=== PATIENT | female | born 1990 | race Caucasian/White ===

== ENCOUNTER 2022-02-20 08:57 | Outpatient (CLI) | payer OTHER, SELFPAY ==
--- NOTE | 2022-02-20 09:15 | CRLHL7_ITS ---
For Patients: As a result of the Century Cures Act, medical imaging exams and procedure reports are released immediately into your electronic medical record. You may view this report before your referring provider. If you have questions, please contact your health care provider. INDICATION: Evaluate anatomy. COMPARISON: none TECHNIQUE: Real time vitale scale imaging of the fetus was performed as well as color Doppler analysis of the umbilical vessels. FINDINGS: Sonographic imaging demonstrates a single living intrauterine gestation. Fetus demonstrates a regular cardiac rate of 157 beats per minute. Fetus has a variable position. The placenta lies right posterior without evidence of placenta previa. The edge of the placenta is 9 cm from the internal cervical os. Amniotic fluid volume appears normal. Single deepest vertical pocket: 4.5 cm. The cervix is closed and measures 4.1 cm in length. The composite ultrasound gestational age is calculated at 22 weeks 2 days with an estimated sonographic due date of 06/24/2022. The estimated weight is 514 grams. The following biometric measurements were obtained: Biparietal diameter: 5.3 cm/22 weeks 0 days Head circumference: 19.7 cm/21 weeks 6 days Abdominal circumference: 18.1 cm/23 weeks 0 days Femur length: 3.8 cm/22 weeks 2 days The HC/AC ratio measures: 1.09 range (1.05-1.22) On anatomic survey, there is a normal appearance of the cerebral ventricles, cavum septi pellucidi, cisterna magna and cerebellum. The nose, lips, and facial profile appear normal. The cervical, thoracic and lumbar spine are well visualized and appear normal. There is a normal four-chamber heart view and the left and right ventricular outflow tracts appear normal. The diaphragm and stomach appear normal. The kidneys and bladder also appear normal. There is a normal three-vessel cord and cord insertion site. The four extremities appear normal. IMPRESSION: Sonographic gestational age 22 weeks 2 days and sonographic due date of 06/24/2022. No intrinsic abnormalities noted on anatomic survey. Dictated by Austin Banuelos MD @ 02/20/2022 10:46:45 AM (Electronically Signed)
== END 2022-02-20 08:58 | disposition home or self-care (01) ==
LOC: US 08:57
PROVIDERS: PCP Family Medicine; Visit Provider Advanced Practice Midwife
DX: Z34.92 Encounter for supervision of normal pregnancy, unspecified, second trimester (principal); Z3A.22 22 weeks gestation of pregnancy
CPT/HCPCS: 76805; 76817

== ENCOUNTER 2022-02-20 10:41 | Outpatient (CLI) | payer OTHER, SELFPAY ==
[2022-02-20 12:21] LABS: Amphetamine Screen Urine Negative (Negative); Barbiturate Screen Urine Negative (Negative); Benzodiazepines Screen Urine Negative (Negative); Cannabinoid Screen Urine Negative (Negative); Cocaine Screen Urine Negative (Negative); Methadone Screen Urine Negative (Negative); Methamphetamines Screen Urine Negative (Negative); Opiate Screen Urine Negative (Negative); Oxycodone Screen Urine Negative (Negative); Phencyclidine Screen Urine Negative (Negative); Tricyclic Antidepressant Urine Negative (Negative)
[2022-02-20 15:33] LABS: Hepatitis B Surface Antigen* Negative (Negative)
[2022-02-20 15:42] LABS: HIV 1/2/P24 Combo Screen* Negative (Negative)
[2022-02-20 15:51] LABS: Hepatitis C Virus Antibody* Negative (Negative)
[2022-02-20 16:45] LABS: Chlamydia DNA Amplified* NOT DETECTED (No Detected); GC DNA Amplified* NOT DETECTED (No Detected)
[2022-02-21 23:33] LABS: Rapid Plasma Reagin (RPR) Non Reactive (Non Reactive)
[2022-02-22 01:29] LABS: Rubella Antibody IgG 19.7 IU/mL
== END 2022-02-20 10:42 | disposition home or self-care (01) ==
PROVIDERS: PCP Family Medicine; Visit Provider Advanced Practice Midwife
DX: Z34.82 Encounter for supervision of other normal pregnancy, second trimester (principal); Z3A.22 22 weeks gestation of pregnancy
CPT/HCPCS: 80306; 86592; 86703; 86762; 86787; 86803; 86850; 86900; 86901; 87086; 87340; 87491; 87591

== ENCOUNTER 2022-04-02 12:01 | Outpatient (CLI) | payer OTHER, SELFPAY ==
[2022-04-03 13:29] LABS: Rapid Plasma Reagin (RPR) Non Reactive (Non Reactive)
== END 2022-04-02 12:02 | disposition home or self-care (01) ==
PROVIDERS: PCP Family Medicine; Visit Provider Physician Assistant
DX: Z34.90 Encounter for supervision of normal pregnancy, unspecified, unspecified trimester (principal)
CPT/HCPCS: 86592

== ENCOUNTER 2022-05-15 08:10 | Outpatient (CLI) | payer OTHER, SELFPAY ==
[2022-05-15 08:17] LABS: Glucose Fasting Check 70 mg/dl (60-115)
[2022-05-15 12:14] LABS: Glucose 1 Hour Gest 182 mg/dl (70-180)
[2022-05-15 12:15] LABS: Glucose GTT-Gestational 3 Hr 142 mg/dl (70-140)
== END 2022-05-15 08:11 | disposition home or self-care (01) ==
LOC: NFLDREF 08:10
PROVIDERS: PCP Family Medicine; Visit Provider Advanced Practice Midwife
DX: O99.810 Abnormal glucose complicating pregnancy (principal); Z3A.34 34 weeks gestation of pregnancy
CPT/HCPCS: 82951; 82952

== ENCOUNTER 2022-06-05 10:42 | Outpatient (CLI) | payer OTHER, SELFPAY ==
[2022-06-06 12:27] LABS: Strep B DNA Probe NEGATIVE (Negative)
== END 2022-06-05 10:43 | disposition home or self-care (01) ==
LOC: NFLDREF 10:42
PROVIDERS: PCP Family Medicine; Visit Provider Advanced Practice Midwife
DX: Z34.83 Encounter for supervision of other normal pregnancy, third trimester (principal); Z3A.37 37 weeks gestation of pregnancy
CPT/HCPCS: 87081; 87653

== ENCOUNTER 2022-06-28 08:01 | Inpatient (IN) | payer OTHER, SELFPAY ==
[2022-06-28] VITALS (56 sets, daily range): BP systolic 115–153; BP diastolic 57–86; PULSE 51–88; RESP 16–18; TEMP 36.3–36.6; O2SAT 90–100; BMI 27.4
--- NOTE | 2022-06-28 09:21 | W.PM.LDBA ---
Subjective History of Present Illness Time Seen by Provider: 09:21 Date Seen: 06/28/22 Narrative: Patient is being admitted to Labor and Delivery for IOL r/t uncontrolled gestational diabetes. She is a 32 year old at 40 4/7 weeks gestation. Her full history and physical was dictated by Juliette Starks CNM on 06/05/22. Please see this for details. [] OB - H&P: Exam Physical Exam: Vital signs: Temp Pulse BP Pulse Ox 97.6 F 67 121/75 100 06/28/22 08:22 06/28/22 08:23 06/28/22 08:23 06/28/22 08:21 Constitutional: Constitutional: no acute distress Routine HEENT Exam: Head: Present normocephalic Eye: Present normal appearance Routine Neck Exam: Neck: Present full ROM Routine Respiratory Exam: Respiratory: Present CTA bilaterally Routine Cardiovascular Exam: Cardiovascular: RRR Detailed Abdominal Exam: Comments: Gravid Routine Exam: External: Present normal external exam Perineum Description: Normal Detailed Labor and Delivery Exam: Patient Gravid: yes Dilation (cm): 0 Effacement (%): 0 Cervix position: posterior Consistency: medium Tachysystole: No Fetus (Single): Station: -3 Heart Rate Baseline: 135 Monitor Accelerations: Present Monitor Decelerations: None 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 32 at 40 4/7 weeks gestation? complicated by:?GDM Labor type: Induced, IOL ongoing ? Category 1 FHR pattern.?? GBS Negative? PLAN:? 1. Routine intrapartum cares as ordered. Continue with IOL per pitocin protocol 2. Monitoring per policy, Intermittent? 3. Planning epidural. Candidate for analgesia of choice.?? 4. Patient encouraged to reposition and ambulate to promote physiologic labor and .? 5. Anticipate progress to active labor and ? ? Delivery/Labor/Induction Plan Plan: induction Induction method: per pitocin protocol
[2022-06-28] MEDS: miSOPROStoL 25 MCG/0.25 TABLET VAGINAL ×3 (10:05→20:31)
[2022-06-28 10:06] LABS: Basophils Absolute Auto 0.02 K/uL (0.00-0.30); Basophils Percent Auto 0.3 % (0.0-3.0); Eosinophils Absolute Auto 0.03 K/uL (0.00-0.50); Eosinophils Percent Auto 0.5 % (0.0-7.0); Hematocrit 33.3 % (33.0-51.0); Hemoglobin* 10.9 gm/dL (12.0-16.0); Immature Granulocytes Abs Auto 0.01 K/uL (0.00-0.30); Immature Granulocytes Pct Auto 0.2 %; Lymphocytes Absolute Auto 1.22 K/uL (0.90-2.90); Lymphocytes Percent Auto 20.3 % (20-44); Mean Corpuscular HGB Conc 33 gm/dL (32-36); Mean Corpuscular Hemoglobin 28 pg (26-34); Mean Corpuscular Volume 84 fL (80-100); Monocytes Percent Auto 3.7 % (0.0-11.0); Platelet Count* 136 K/uL (140-440); RDW Coefficient of Variation % 12.6 % (11.5-15.5); Red Blood Count 3.97 m/uL (4.00-5.20); White Blood Count* 6.02 K/uL (4.50-11.00)
[2022-06-28 10:09] LABS: Slide Review Reflex No
[2022-06-28 10:22] LABS: Amphetamine Screen Urine Negative (Negative); Barbiturate Screen Urine Negative (Negative); Benzodiazepines Screen Urine Negative (Negative); Cannabinoid Screen Urine Negative (Negative); Cocaine Screen Urine Negative (Negative); Methadone Screen Urine Negative (Negative); Methamphetamines Screen Urine Negative (Negative); Opiate Screen Urine Negative (Negative); Oxycodone Screen Urine Negative (Negative); Phencyclidine Screen Urine Negative (Negative); Tricyclic Antidepressant Urine Negative (Negative)
[2022-06-28 10:37] LABS: SARS PCR* Negative SARS-CoV-2 (Negative)
[2022-06-28] MEDS: LACTATED RINGERS 1000 ML 1,000 ML 1025 ML IV (18:41)
[2022-06-28] MEDS: ROPIVACAINE 0.2% 100 ml 100 ML 12 MG EPIDURAL (19:20)
[2022-06-28] MEDS: LIDOCAINE 2% (PF) 5 ML VIAL EPIDURAL (19:20)
[2022-06-28] MEDS: fentaNYL 250 MCG/5 ML inj 100 MCG EPIDURAL (19:25)
--- NOTE | 2022-06-28 19:38 | P.ANBPRC_ITS ---
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 Smoking Status: Never smoker Little interest or pleasure in doing things: several days Feeling down, depressed, or hopeless: several days Meds Home Medications and Allergies Home Medications Medication Instructions Recorded Confirmed Type prenat.vits,robert,[id number]-ytdsf 1 tab PO QDAY 02/20/22 06/28/22 History hydroxyzine pamoate 25 mg capsule 25 mg PO ONCE PRN 06/19/22 06/28/22 History (Vistaril) Allergies Allergy/AdvReac Type Severity Reaction Status Date / Time No Known Allergies Allergy Verified 06/19/22 09:05 Results Labs Labs: Laboratory Results - last 24 hr 06/28/22 06/28/22 06/28/22 09:53 09:53 09:54 WBC 6.02 RBC 3.97 L Hgb 10.9 L Hct 33.3 MCV 84 MCH 28 MCHC 33 RDW Coeff of Carmen 12.6 Plt Count 136 L Neut % (Auto) 75.0 H Lymph % (Auto) 20.3 [place] % (Auto) 3.7 Eos % (Auto) 0.5 Baso % (Auto) 0.3 Neut # (Auto) 4.50 Lymph # (Auto) 1.22 [place] # (Auto) 0.20 Eos # (Auto) 0.03 Baso # (Auto) 0.02 Abs Immat Gran (auto) 0.01 Imm/Tot Granulo (auto) 0.2 Urine Opiates Screen Negative Ur Oxycodone Screen Negative Urine Methadone Screen Negative Ur Propoxyphene Screen Negative Ur Barbiturates Screen Negative U Tricyclic Antidepress Negative Ur Phencyclidine Scrn Negative Ur Amphetamines Screen Negative U Methamphetamines Scrn Negative U Benzodiazepines Scrn Negative Urine Cocaine Screen Negative U Marijuana (THC) Screen Negative SARS-CoV-2 (PCR) Negative SARS-CoV-2 Blood Type Antibody Screen 06/28/22 09:54 WBC RBC Hgb Hct MCV MCH MCHC RDW Coeff of Carmen Plt Count Neut % (Auto) Lymph % (Auto) [place] % (Auto) Eos % (Auto) Baso % (Auto) Neut # (Auto) Lymph # (Auto) [place] # (Auto) Eos # (Auto) Baso # (Auto) Abs Immat Gran (auto) Imm/Tot Granulo (auto) Urine Opiates Screen Ur Oxycodone Screen Urine Methadone Screen Ur Propoxyphene Screen Ur Barbiturates Screen U Tricyclic Antidepress Ur Phencyclidine Scrn Ur Amphetamines Screen U Methamphetamines Scrn U Benzodiazepines Scrn Urine Cocaine Screen U Marijuana (THC) Screen SARS-CoV-2 (PCR) Blood Type A Positive Antibody Screen NEGATIVE Vital Signs Vital Signs: Last Vital Signs Temp 97.9 F 06/28/22 17:55 Pulse 75 06/28/22 19:37 BP 126/79 06/28/22 19:37 Pulse Ox 100 06/28/22 19:36 Weight: 77.111 kg Height: 167.64 cm Anesthesia Procedures Epidural Insertion Patient Location: OB Start Time: 18:38 Stop Time: 19:38 Start Date: 06/28/22 Stop Date: 06/28/22 Reason for Block: primary anesthetic Patient Position: sitting Performed By: Lopez Joseph Preanesthetic Checklist: IV checked, risks and benefits discussed, surgical consent, monitors and equipment checked, pre-op evaluation, timeout performed and anesthesia consent Prep: chlorhexidine gluconate Monitoring: blood pressure monitoring, conveyor monitor, continuous pulse oximetry and heart rate Approach: midline Vertebral Space: lumbar (1-5) Needle Type: Tuohy needle Injection Technique: continuous catheter Needle gauge: 17 Needle Length (cm): 10 cm Needle Insertion Depth (cm): 6 Catheter Gauge: 19 Catheter Type: multi-orifice Catheter at skin depth (cm): 12 Test Dose Result: negative and lidocaine 1.5% with epinephrine 1 to 200,000 Events: other
--- NOTE | 2022-06-28 21:09 | PM.OBPNL ---
Subjective Time Seen by Provider: 20:30 Date Seen: 06/28/22 Narrative: Julieth is resting comfortably in bed with an epidural. She is currently being supported by Robby. Understands the current plan of care. ?Denies concerns at this time. Questions answered to her satisfaction. ?She would like to continue with epidural for comfort and pain management.? Objective Exam: VSS, afebrileGeneral Appearance:?Calm, cooperative. No acute distress. ? Psychiatric Exam: Alert and oriented, appropriate affect Abdomen: Gravid Ctx: ?Q 1-4 min apart. ?Moderate ? FHTs: ?Baseline: 140 ? ?Variability: Moderate ? Accels: absent ? ?Decels: ?absent SVE: 4, 60%, -4 Membranes: Intact Vital Signs: Last Vital Signs Temp 97.8 F 06/28/22 19:31 Pulse 57 L 06/28/22 21:01 Resp 18 06/28/22 19:31 BP 131/78 06/28/22 21:01 Pulse Ox 98 06/28/22 20:57 Assessment Heart Rate Baseline: 135 Plan Plan: Assessment:? 32yo at 40w 4d gestation?? Patient is coping well with challenges of labor.?? Labor type: Induced, Early labor? Category 1 FHR pattern.?? complicated by: GDM Plan:?? Continue with routine intrapartum cares as ordered.?? Continue IOL with cytotec protocol Patient encouraged to change positions in bed to promote physiologic labor and .?? Epidural for comfort . Anticipate progress to active labor and . ?
--- NOTE | 2022-06-28 22:04 | PM.OBPNL ---
Subjective Time Seen by Provider: 22:00 Date Seen: 06/28/22 Narrative: Pt requesting AROM for labor progression. Comfortable with epidural. Objective Vital Signs: Last Vital Signs Temp 97.8 F 06/28/22 19:31 Pulse 61 06/28/22 21:46 Resp 18 06/28/22 19:31 BP 134/79 06/28/22 21:46 Pulse Ox 98 06/28/22 20:57 Assessment Amniotic Membrane Status: AROM (Clear fluid) Plan Plan: Provider called for delivery.
[2022-06-28] MEDS: OXYTOCIN 30 unit/500 ML in NS 30 UNIT/500 ML BAG 300 UNIT IVPB (22:29)
--- NOTE | 2022-06-28 23:12 | P.OBPRC_ITS ---
Documented by User: Stacey Coates CNM 06/28/22 23:45 Procedure Delivery date: 06/28/22 Procedure Done: Global Procedure Details: Julieth is a 32 year-old G6 now?P5 admitted on 06/28/22 at 40 Weeks, 4 Days gestation for IOL r/t GDM1. Cervical exam on admission was 0.5 cm/20 % effaced/- 3 station with membranes intact in vertex presentation.? AROM?occurred at 2152 with clear fluid. Labor Analgesia:? Epidural Pitocin:?No, PP only for AMTSL Labor onset:? 1814 Complete: 2204 Pushing:? 2211 heart tones during second stage: baseline 125, moderate variability, accels present, decels into 90's during pushing with good return to baseline Patient was admitted for IOL r/t GDM and progressed with augmentation. AROM noted at 2152 with clear fluid. Patient was complete at 2204 and pushing at 221. of a viable male at 2227 in bed, semi-reclined. Vertex delivered OA. No nuchal cord or shoulder. Body delivered easily and without incident. passed to mother's abdomen with a vigorous cry. Cord was clamped and cut after pulsations stopped. APGARS were 9 at one minute and 9 at five minutes. Placenta delivered spontaneously at 2248. Placenta delivered intact, but small in relation to baby's size, spongy consistency, with a 3 vessel cord. Fundus firm. No lacerations. EBL 50 cc. Mother and baby stable; mother plans to breastfeed. weight 9lb 11oz.? Placenta delivered spontaneously and complete at 2248 with a 3 vessel cord. Mother and infant were stable after?delivery. Lacerations:? None Blood loss: 50 mL. Blood loss measurement type: EBL Sponge and needles counts are correct. Events: GDMA1 Intrapartal Events: Labor Induction (cytotec x3) Induction method: per misoprostol protocol Delivery augmentation: rupture of membranes (clear fluid) Delivery monitor: external FHT and external uterine Route of delivery: Laceration description: None Estimated blood loss (mL): 50 Anesthesia type: Epidural Disposition: floor [place] Infant Gender: Male presentation: vertex (OA) Placental Delivery Description: Spontaneous Cord Description: 3 Vessels OB Vag Delivery Procedures Additional Procedures ECV: No Cook Catheter Insertion: No NST: No D&C: No Laceration Repair: No Tubal Ligation : No Other: No Documented by User: Michelle Lee CNM 06/29/22 10:28 Procedure Procedure Details: Julieth is a 32 year-old G6 now?P5 admitted on 06/28/22 at 40 Weeks, 4 Days gestation for IOL r/t GDM1. Cervical exam on admission was 0.5 cm/20 % effaced/- 3 station with membranes intact in vertex presentation.? AROM?occurred at 2153 with clear fluid. Labor Analgesia:? Epidural Pitocin:?No, PP only for AMTSL Labor onset:? 1814 Complete: 2204 Pushing:? 2211 heart tones during second stage: baseline 125, moderate variability, accels present, decels into 90's during pushing with good return to baseline Patient was admitted for IOL r/t GDM and progressed with augmentation. AROM noted at 2153 with clear fluid. Patient was complete at 2205 and pushing at 2212. of a viable male at 2227 in bed, semi-reclined. Vertex delivered OA. No nuchal cord or shoulder. Body delivered easily and without incident. Infant passed to mother's abdomen with a vigorous cry. Cord was clamped and cut after pulsations stopped. APGARS were 9 at one minute and 9 at five minutes. Placenta delivered spontaneously at 2248. Placenta delivered intact, but small in relation to baby's size, spongy consistency, with a 3 vessel cord. Fundus firm. No lacerations. EBL 50 cc. Mother and baby stable; mother plans to breastfeed. Infant weight 9lb 11oz.? Placenta delivered spontaneously and complete at 2248 with a 3 vessel cord. Mother and were stable after?delivery. Lacerations:? None Blood loss: 50 mL. Blood loss measurement type: EBL Sponge and needles counts are correct. JERMAINE Cox present for supervision of delivery.
[2022-06-29] VITALS (11 sets, daily range): BP systolic 111–132; BP diastolic 66–82; PULSE 61–72; RESP 16–18; TEMP 36.3–36.6; O2SAT 96–97
[2022-06-29] MEDS: IBUPROFEN 600 MG TABLET PO ×3 (02:53→16:05)
[2022-06-29] MEDS: ACETAMINOPHEN 500 MG TABLET 1000 MG PO ×2 (06:14→12:16)
--- NOTE | 2022-06-29 08:13 | PM.OBDSVD1 ---
DS: Providers Provider Date Seen: 06/29/22 Date of admission: 06/28/22 08:01 Primary care physician: Lupe Xiong MD Admitting Clinician: Stacey Coates CNM Attending Physician on discharge: Michelle Lee CNM Date of Discharge: 06/29/22 DS: Diagnosis Discharge Diagnosis (1) care and examination immediately after delivery: Status: Acute (2) Influenza A: Status: Acute (3) Gestational diabetes mellitus (GDM) affecting : Status: Acute (4) Migraine with aura: Status: Acute (5) Vaginal delivery: Status: Acute (6) Lactating mother: Status: Acute Exam Narrative: Exam Narrative: GENERAL APPEARANCE:? normal affect, alert, no distress? MOOD:? appropriate? CHEST:? clear to auscultation? HEART:? regular rate and rhythm? ABDOMEN:? soft, non-tender the uterine fundus is At Umbilicus, Midline and is appropriate for the stage of recovery.? PERINEUM:? mild edema of the perineum? EXTREMITIES:? normal and no edema? Const: Vital Signs, click to edit/add: Vital Signs - 24 hr 06/28/22 08:21 06/28/22 08:22 06/28/22 08:23 Temperature 97.6 F Pulse Rate 67 Pulse Rate [Pulse Oximeter] Respiratory Rate Blood Pressure 121/75 Blood Pressure [Le ft Arm] Pulse Oximetry 100 Oxygen Delivery Me od 06/28/22 11:58 06/28/22 17:55 06/28/22 19:16 Temperature Pulse Rate 64 72 Pulse Rate [Pulse Oximeter] Respiratory Rate Blood Pressure 115/60 119/65 Blood Pressure [Le ft Arm] Pulse Oximetry 100 Oxygen Delivery Me thod 06/28/22 19:21 06/28/22 19:26 06/28/22 19:29 Temperature Pulse Rate 70 66 Pulse Rate [Pulse Oximeter] Respiratory Rate Blood Pressure 136/82 126/76 Blood Pressure [Le ft Arm] Pulse Oximetry 99 100 Oxygen Delivery Me thod 06/28/22 19:31 06/28/22 19:33 06/28/22 19:35 Temperature Pulse Rate 70 67 71 Pulse Rate [Pulse Oximeter] Respiratory Rate Blood Pressure 131/81 133/86 127/82 Blood Pressure [Le ft Arm] Pulse Oximetry 99 Oxygen Delivery Me od 06/28/22 19:36 11/25/22 19:37 06/28/22 19:39 Temperature Pulse Rate 75 73 Pulse Rate [Pulse Oximeter] Respiratory Rate Blood Pressure 126/79 130/78 Blood Pressure [Le ft Arm] Pulse Oximetry 100 Oxygen Delivery Me thod 06/28/22 19:41 06/28/22 19:46 06/28/22 19:48 Temperature Pulse Rate 61 68 Pulse Rate [Pulse Oximeter] Respiratory Rate Blood Pressure 128/77 126/78 Blood Pressure [Le ft Arm] Pulse Oximetry 99 99 Oxygen Delivery Me thod 06/28/22 19:51 06/28/22 19:56 06/28/22 19:57 Temperature Pulse Rate 54 L 59 L Pulse Rate [Pulse Oximeter] Respiratory Rate Blood Pressure 130/82 128/65 Blood Pressure [Le ft Arm] Pulse Oximetry 98 98 Oxygen Delivery Me thod 06/28/22 20:00 06/28/22 20:01 06/28/22 20:06 Temperature Pulse Rate 62 Pulse Rate [Pulse Oximeter] Respiratory Rate Blood Pressure 118/65 Blood Pressure [Le ft Arm] Pulse Oximetry 98 98 Oxygen Delivery Me thod 06/28/22 19:31 06/28/22 20:11 06/28/22 20:16 Temperature 97.8 F Pulse Rate Pulse Rate [Pulse Oximeter] Respiratory Rate 18 Blood Pressure Blood Pressure [Le ft Arm] Pulse Oximetry 98 98 Oxygen Delivery Me thod 06/28/22 20:17 06/28/22 20:21 06/28/22 20:27 Temperature Pulse Rate 56 L Pulse Rate [Pulse Oximeter] Respiratory Rate Blood Pressure 117/68 Blood Pressure [Le ft Arm] Pulse Oximetry 98 92 Oxygen Delivery Me thod 06/28/22 20:27 06/28/22 20:31 06/28/22 20:32 Temperature Pulse Rate 58 L Pulse Rate [Pulse Oximeter] Respiratory Rate Blood Pressure 115/67 Blood Pressure [Le ft Arm] Pulse Oximetry 91 98 Oxygen Delivery Me thod 06/28/22 20:37 06/28/22 20:42 06/28/22 20:46 Temperature Pulse Rate 53 L Pulse Rate [Pulse Oximeter] Respiratory Rate Blood Pressure 124/70 Blood Pressure [Le ft Arm] Pulse Oximetry 98 98 Oxygen Delivery Me thod 06/28/22 20:47 06/28/22 20:52 06/28/22 20:57 Temperature Pulse Rate Pulse Rate [Pulse Oximeter] Respiratory Rate Blood Pressure Blood Pressure [Le ft Arm] Pulse Oximetry 97 98 98 Oxygen Delivery Me thod 06/28/22 21:01 06/28/22 21:19 06/28/22 21:31 Temperature Pulse Rate 57 L 77 59 L Pulse Rate [Pulse Oximeter] Respiratory Rate Blood Pressure 131/78 124/66 138/80 Blood Pressure [Le ft Arm] Pulse Oximetry Oxygen Delivery Me thod 06/28/22 21:46 06/28/22 22:12 06/28/22 22:17 Temperature Pulse Rate 61 67 Pulse Rate [Pulse Oximeter] Respiratory Rate Blood Pressure 134/79 153/84 H Blood Pressure [Le ft Arm] Pulse Oximetry 100 98 Oxygen Delivery Va thod 06/28/22 22:22 06/28/22 22:25 06/28/22 22:27 Temperature Pulse Rate Pulse Rate [Pulse Oximeter] Respiratory Rate Blood Pressure Blood Pressure [Le ft Arm] Pulse Oximetry 99 90 100 Oxygen Delivery Va thod 06/28/22 22:31 06/28/22 22:46 06/28/22 23:01 Temperature Pulse Rate 70 68 64 Pulse Rate [Pulse Oximeter] Respiratory Rate Blood Pressure 138/69 118/57 L 127/77 Blood Pressure [Le ft Arm] Pulse Oximetry Oxygen Delivery Va thod 06/28/22 23:16 06/28/22 23:31 06/28/22 23:46 Temperature Pulse Rate 60 63 63 Pulse Rate [Pulse Oximeter] Respiratory Rate Blood Pressure 126/73 117/69 115/70 Blood Pressure [Le ft Arm] Pulse Oximetry Oxygen Delivery Va thod 06/29/22 00:01 06/29/22 00:16 06/29/22 00:31 Temperature Pulse Rate 61 66 Pulse Rate [Pulse Oximeter] Respiratory Rate Blood Pressure 112/67 117/66 115/71 Blood Pressure [Le ft Arm] Pulse Oximetry Oxygen Delivery Va thod 06/29/22 00:46 06/28/22 17:55 06/28/22 12:00 Temperature 97.9 F 97.8 F Pulse Rate 72 Pulse Rate [Pulse Oximeter] Respiratory Rate Blood Pressure 118/73 Blood Pressure [Le ft Arm] Pulse Oximetry Oxygen Delivery Me thod 06/28/22 22:00 06/28/22 23:05 11/25/22 23:20 Temperature 97.4 F L Pulse Rate Pulse Rate [Pulse Oximeter] 64 60 Respiratory Rate 16 Blood Pressure Blood Pressure [Le ft Arm] 127/77 Pulse Oximetry Oxygen Delivery Me thod 06/29/22 04:06 Temperature 97.7 F Pulse Rate Pulse Rate [Pulse Oximeter] 70 Respiratory Rate 16 Blood Pressure Blood Pressure [Le ft Arm] 111/70 Pulse Oximetry 97 Oxygen Delivery Me thod Room Air OB - DS: Summary Hospital Course Hospital Course: The patient is a 32 year old G 6 P 5015 at 40 4/7 weeks gestation that was admitted to the Center on 06/28/22 for IOL for gestational diabetes, uncontrolled. She had an uncomplicated vaginal delivery. She delivered a viable male infant. She is breast feeding. the patient has done well. The pain is well controlled with current medications.? She has no new complaints.? Urinary output is adequate and she is voiding without difficulty.? Has a good appetite, is tolerating a general diet, is passing flatus, and has not yet had a bowel movement.? Has scant amount of rubra lochia.? She is ambulating well. She is and reports it is going well.? Peripartum Data delivery method: Vaginal Laceration description: None complications: none [place] Gender: Male Discharge Plan: Home Status at Discharge Functional status at discharge: independent ambulation Overall status at discharge: patient is progressing back to baseline Time Spent with Patient Time attestation: Total time spent providing and/or coordinating discharge services: Time spent: Less than 30 minutes Discharge Plan Discharge Disposition: Home, Self-Care Date of Admission: 06/28/22 08:01 Attending Provider on Discharge: Michelle Lee Primary Care Provider: Lupe Xiong Condition: Stable Anticipated Discharge Date/Time: 06/29/22 22:30 Discharge Medications: New acetaminophen 500 mg Tablet 1,000 mg PO Q6H PRNQty: 0 0RF docusate sodium 100 mg Capsule 100 mg PO DAILY Qty: 90 0RF ibuprofen 600 mg Tablet 600 mg PO Q6H PRNQty: 60 0RF Continued prenat.vits,robert,yum-vvvg-sfsmc Tablet 1 tab PO QDAY Discontinued hydroxyzine pamoate [Vistaril] 25 mg capsule 25 mg PO ONCE PRN Hold Instructions: Order Change oseltamivir [Tamiflu] 75 mg capsule 75 mg PO BID 5 Days Qty: 10 0RF (DME) Test Strips Misc See Rx Instructions .MEDSUPPLY Qty: 100 3RF Rx Instructions: Test blood sugar 4 times daily. (DME) lancets Misc See Rx Instructions .MEDSUPPLY Qty: 100 3RF Rx Instructions: Test blood sugar 4 times daily. (DME) Blood Glucose Meter Misc See Rx Instructions .MEDSUPPLY Qty: 1 0RF Rx Instructions: As directed Discharge Orders: Discharge Order (Routine); Ordered 06/29/22 Ordered By: Michelle Lee Patient Education: OB Vaginal/Breast Feeding Additional Instructions: Discharge instructions were reviewed with the patient including signs and symptoms of infection and home going medications Nothing vaginally for 6 weeks: no tampons or intercourse Do not drive while taking narcotic pain medication(s) Off Work or School for 6 weeks 2-week visit: discuss feeding concerns, review control options and screen for anxiety/depression. 6-week visit for an annual exam and lab for 2 hour glucose test for gestational diabetes follow-up. consultation services are available to all mothers and babies for the first year after delivery.? To make an appointment, please call [phone]. Activity Level: No Restrictions Discharge Diet: Regular Follow Up Appointments: [facility] [Provider Group] (2 week and 6 week with 2 hour glucose test) Forms: [employer] Info Instructions
[2022-06-29] MEDS: DOCUSATE SODIUM 100 MG CAPSULE PO (08:42)
== END 2022-06-30 | disposition home or self-care (01) | DRG 806 ==
PROVIDERS: Admitting Provider Advanced Practice Midwife; PCP Family Medicine; Visit Provider Advanced Practice Midwife
DX: O24.429 Gestational diabetes mellitus in childbirth, unspecified control (principal); O98.52 Other viral diseases complicating childbirth; Z37.0 Single live birth; J10.1 Influenza due to other identified influenza virus with other respiratory manifestations; G43.109 Migraine with aura, not intractable, without status migrainosus; Z3A.40 40 weeks gestation of pregnancy
CPT/HCPCS: 01967; 36415; 59200; 80306; 82962; 85018; 85025; 86850; 86900; 86901; 87635; 88307; A9270; J2795; J3010; J7120

== ENCOUNTER 2025-01-05 10:01 | Outpatient (CLI) | payer BC, SELFPAY ==
--- NOTE | 2025-01-05 10:15 | CRLHL7_ITS ---
For Patients: As a result of the Century Cures Act, medical imaging exams and procedure reports are released immediately into your electronic medical record. You may view this report before your referring provider. If you have questions, please contact your health care provider. Technique: Double-contrast upper GI performed after the uneventful administration of thick and thin barium. Fluoroscopy time 1 minutes 31 seconds. Indication: Dysphagia Comparison: None. Findings: Swallowing mechanism: Normal. Esophageal motility: Normal. Gastroesophageal reflux: None. Hernia: None. Esophagus, stomach and duodenal bulb mucosa: Normal mucosa. No stricture or mass. Impression: Normal upper GI. Dictated by Austin Banuelos MD @ 01/10/2025 10:39:19 AM (Electronically Signed)
== END 2025-01-05 10:02 | disposition home or self-care (01) ==
LOC: RAD 10:04
PROVIDERS: PCP Surgery; Visit Provider Surgery
DX: R13.10 Dysphagia, unspecified (principal)
CPT/HCPCS: 74220

== ENCOUNTER 2025-02-18 06:28 | Outpatient (CLI) | payer BC, SELFPAY ==
--- NOTE | 2025-02-18 07:57 | P.ANES_ITS ---
Anesthesia Charges Start Date/Time Anesthesia Start Date: 02/18/25 Anesthesia Start Time: 07:12 Stop Date/Time Anesthesia Stop Date: 02/18/25 Anesthesia Stop Time: 07:53 Coding CPT Codes CPT Codes: ANES UPR LWR GI NDSC PX - 03713 ([id number]) P1 - NORMAL HEALTHY PATIENT, QK - ENVIRONMENTAL ADVISOR 2-4 CNCRNT ANES PROC, QX - CARPENTER PROTOTYPE SVC W/ MED DIRECTION
--- NOTE | 2025-02-18 07:57 | W.ANESCHARGE ---
Anesthesia Charges Start Date/Time Anesthesia Start Date: 02/18/25 Anesthesia Start Time: 07:12 Stop Date/Time Anesthesia Stop Date: 02/18/25 Anesthesia Stop Time: 07:53 Coding CPT Codes CPT Codes: ANES UPR LWR GI NDSC PX - 87110 ([id number]) P1 - NORMAL HEALTHY PATIENT, QK - CHEMISTRY ACCOUNT MANAGER 2-4 CNCRNT ANES PROC, QX - COMMERCIAL MANAGER SVC W/ MED DIRECTION
--- NOTE | 2025-02-18 08:35 | P.ANES_ITS ---
Anesthesia Charges Start Date/Time Anesthesia Start Date: 02/18/25 Anesthesia Start Time: 07:12 Stop Date/Time Anesthesia Stop Date: 02/18/25 Anesthesia Stop Time: 07:53 Coding CPT Codes CPT Codes: ANES UPR LWR GI NDSC PX - 42368 ([id number]) P1 - NORMAL HEALTHY PATIENT, QK - AD OPERATIONS COORDINATOR 2-4 CNCRNT ANES PROC, QX - FACILITY ENGINEER SVC W/ MED DIRECTION
--- NOTE | 2025-02-18 08:35 | W.ANESCHARGE ---
Anesthesia Charges Start Date/Time Anesthesia Start Date: 02/18/25 Anesthesia Start Time: 07:12 Stop Date/Time Anesthesia Stop Date: 02/18/25 Anesthesia Stop Time: 07:53 Coding CPT Codes CPT Codes: ANES UPR LWR GI NDSC PX - 07750 ([id number]) P1 - NORMAL HEALTHY PATIENT, QK - AUDIO VISUAL ENGINEER 2-4 CNCRNT ANES PROC, QX - INPATIENT SERVICES RN SVC W/ MED DIRECTION
== END 2025-02-18 06:29 | disposition home or self-care (01) ==
LOC: OP CLINIC 06:28
PROVIDERS: PCP Surgery; Visit Provider Internal Medicine Gastroenterology
DX: K92.1 Melena (principal); K64.8 Other hemorrhoids; K64.4 Residual hemorrhoidal skin tags; R10.13 Epigastric pain; K21.9 Gastro-esophageal reflux disease without esophagitis; R13.10 Dysphagia, unspecified
CPT/HCPCS: 00813; 43239; 45378; 88305; J2704